=== PATIENT | female | born 1990 | race Caucasian/White ===

== ENCOUNTER 2020-06-03 13:57 | Emergency (ER) | payer SELFPAY ==
[2020-06-03 14:01] VITALS: BP 121/80; PULSE 96; RESP 16; TEMP 36.7; O2SAT 99
--- NOTE | 2020-06-03 14:43 | W.ED.GENAD ---
Discharge Plan Disposition Patient Disposition: HOME Condition: Stable Discharge Details Chief Complaint: Cellulitis Clinical Impression: Cellulitis Primary Care Provider: None,None ED Provider: Jose Jain Home Meds and New Rx's Prescriptions: New cephalexin [Keflex] 500 mg capsule 500 mg PO QID 10 Days Qty: 40 RF: 0 Continued multivitamin Capsule 1 cap PO DAILY RF: 0 Discharge Instructions Instructions: Cellulitis (ED) Additional Instructions: Keflex as directed. Warm compresses every 2 hours for 20 minutes. Please watch for new or worsening symptoms and return to the ER for any concerns. Typically referrals to specialist do not come directly from the ER. I have given you a referral but I do not know if this will be sufficient for their office. Because of this I have also placed you on the care management list, they should contact you early next week and to help expedite all of your outpatient care needs. Referrals: Nilay Jay MD [MD CONSULTING PHYSICIAN] - Discharge Data Discharge Date/Time-TO BE ENTERED AT DEPARTURE: 06/03/20 15:03 Medical Decision Making 30-year-old female presents to the ER with what appears to be a mild right axilla cellulitis. Neuro, vascular, tendon intact. She is afebrile and appears well, nontoxic. We discussed options. I can certainly give her the name and number of a metal sorter however is not typically an official referral to a subspecialist. I will also place her on the healthcare social worker list to help expedite any outpatient care. At this time there is no need for incision and drainage, likely needs to see dermatology or general surgery for definitive care. Given the mild erythema, tenderness, warmth, likely localized cellulitis, will provide antibiotic therapy. Patient is comfortable with this plan has no additional questions or concerns upon discharge. HPI General Mode of arrival: ambulatory. Date/Time Provider Initiated Documentation: 06/03/20 14:23. Limitations to Documentation: no limitations. Information obtained by: patient. HPI Narrative: 30-year-old female with no significant past medical history presents with year of intermittent symptoms to her right axilla. She reports chronic ingrown hair that occasionally swells, occasionally drains. She was able to drain it herself just a couple of days ago and now the swelling has resolved completely. Mild redness and discomfort but denies any fever or spreading redness. Denies rash elsewhere on her body. She contacted a metal sorter for definitive care but they reported they needed a referral and sent her to the ER instead. Related Data Home Medications Medication Instructions Recorded Confirmed cephalexin [Keflex] 500 mg PO QID 10 Days #40 cap 06/03/20 multivitamin 1 cap PO DAILY 06/03/20 06/03/20 Previous Rx's Medication Instructions Recorded cephalexin [Keflex] 500 mg PO QID 10 Days #40 cap 06/03/20 Allergies Allergy/AdvReac Type Severity Reaction Status Date / Time No Known Allergies Allergy Unverified 06/03/20 14:07 General Stated Complaint: Cellulitis JEFF: 3 Review of Systems Constitutional Constitutional: Denies fever(s) and Denies weakness Musculoskeletal Musculoskeletal: Denies arthralgias, Denies numbness and Denies tingling Integumentary/Breasts Skin/Breast: Reports erythema Neurologic Neurologic: Denies numbness, Denies tingling and Denies weakness [facility] Social History Smoking/Tobacco Use Status: Current every day Tobacco Type: cigarettes Alcohol Intake: never Drug use: Daily Substance use type: marijuana Do you feel safe at home: Yes Do you feel safe in your relationship?: Yes Exam Const General: cooperative, healthy appearing, comfortable and no acute distress Orientation: alert, awake and oriented x3 HENMT Head: normal to inspection, normocephalic and atraumatic Mouth: moist mucous membranes Eyes Conjunctivae: conjunctivae normal Neck Neck: normal visual inspection, full ROM, trachea midline, supple and nontender Resp Effort & Inspection: normal respiratory effort and able to speak in complete sentences Cardio Rate: regular rate Rhythm: regular rhythm Skin General skin exam: no rashes or lesions noted Neuro General: patient alert, patient awake, moves all extremities and no focal motor deficits Sensory Exam: no sensory deficits noted Extrem Other: Right axilla there was a dime sized area of slightly tender, macular erythema. Minimal induration without fluctuance or pointing abscess. There is no drainage. No localized lymphadenopathy. Psych Appearance: grossly normal Mental Status: mental status grossly normal Course Vital Signs Vital signs: Vital Signs Temperature 36.7 C 06/03/20 14:01 Pulse 96 H 06/03/20 14:01 Respiratory Rate 16 06/03/20 14:01 Blood Pressure 121/80 06/03/20 14:01 Pulse Oximetry 99 06/03/20 14:01 Temperature 36.7 C 06/03/20 14:01 Temperature Source Temporal Artery Scan 06/03/20 14:01 Pulse 96 H 06/03/20 14:01 Respiratory Rate 16 06/03/20 14:01 Respiratory Effort Non-Labored 06/03/20 14:05 Blood Pressure 121/80 06/03/20 14:01 Blood Pressure Position Sitting 06/03/20 14:01 Pulse Oximetry 99 06/03/20 14:01 Oxygen Delivery Method Room Air 06/03/20 14:01 Oxygen Flow Rate 0 06/03/20 14:01 Pain Level 7 06/03/20 14:01
[2020-06-03 15:02] VITALS: BP 124/81; PULSE 76; RESP 14; TEMP 36.1; O2SAT 98
--- NOTE | 2020-06-04 11:39 | NUR.NOTE ---
Nursing Note: Referral for Dermatology follow up and help with insurance given to Care Management. Jailene Hauser
== END 2020-06-03 15:03 | disposition home or self-care (01) ==
LOC: ER 15:16
PROVIDERS: Emergency Provider Physician Assistant
DX: L03.111 Cellulitis of right axilla (principal)
CPT/HCPCS: 99283

== ENCOUNTER 2022-06-28 12:44 | Emergency (ER) | payer SELFPAY ==
[2022-06-28 13:07] VITALS: BP 127/82; PULSE 68; RESP 18; TEMP 36.8; O2SAT 97
[2022-06-28 13:21] LABS: Bilirubin Negative (Negative); Blood Trace-intact (Negative); Clarity Sl Cloudy (Clear); Glucose Negative (Negative); Ketones Negative (Negative); Leukocyte Esterase Moderate (Negative); Nitrite Negative (Negative); Specific Gravity 1.015 (1.005-1.025); Urobilinogen 0.2 EU/dL (Up TO 0.2); pH 6.5 (5-8)
[2022-06-28 13:28] LABS: Bacteria Moderate HPF (Negative); C & S Indicated? Yes; Casts Negative LPF (Negative); Crystals Negative HPF (Negative); Epithelial Cells Few HPF (Negative); Mucus Negative (Negative); RBC 0-2 HPF (0-2); WBC 20-50 HPF (0-5)
--- NOTE | 2022-06-28 13:40 | ED.GENADUL_ITS ---
Discharge Plan Disposition Patient Disposition: HOME Condition: Stable Discharge Details Clinical Impression: Urinary tract infection Primary Care Provider: None,None ED Provider: Gerardo Cisse Home Meds and New Rx's Prescriptions: New cefpodoxime 200 mg tablet 200 mg PO BID 7 Days Qty: 14 0RF Rx Instructions: must administer with a meal/food phenazopyridine [Pyridium] 100 mg tablet 100 mg PO BID PRNQty: 7 0RF Rx Instructions: bid prn urinary pain No Action prenat.vits,phyllis,osi-qavu-cpriz Tablet 1 tab PO DAILY Discharge Instructions Instructions: Urinary Tract Infection in Women (ED) Additional Instructions: Please return to the emergency department you develop any worsening symptoms such as worsening pain fevers chills nausea vomiting or other abnormal symptoms Medical Decision Making 32-year-old female presents with dysuria urinary frequency and blood in her urine. Denies vaginal discharge, currently is on her menstrual period. Hemodynamically stable afebrile nontoxic. Likely simple cystitis, no evidence at this time of pyelonephritis or systemic signs of illness. Patient does not have any symptoms consistent with STI at this time. Will treat empirically with cefpodoxime and Pyridium. Given home care instructions and return precautions. HPI General Date/Time Provider Initiated Documentation: 06/28/22 12:48 . HPI Narrative: 32-year-old female presents with dysuria urinary frequency and blood-tinged urine. Denies nausea vomiting fevers or chills. Denies vaginal discharge. Also endorses she is on her menstrual period Related Data Home Medications Medication Instructions Recorded Confirmed prenat.vits,phyllis,[id number] 1 tab PO DAILY 08/28/21 cefpodoxime 200 mg tablet 200 mg PO BID 7 days #14 tabs 06/28/22 phenazopyridine 100 mg tablet 100 mg PO BID PRN #7 tabs 06/28/22 (Pyridium) Previous Rx's Medication Instructions Recorded cefpodoxime 200 mg tablet 200 mg PO BID 7 days #14 tabs 06/28/22 phenazopyridine 100 mg tablet 100 mg PO BID PRN #7 tabs 06/28/22 (Pyridium) Allergies Allergy/AdvReac Type Severity Reaction Status Date / Time No Known Allergies Allergy Verified 08/28/21 13:24 General Stated Complaint: Urinary JEFF: 3 Review of Systems Narrative: Review of Systems Constitutional: negative Eyes: negative ENT: negative Cardiovascular: negative Respiratory: negative Gastrointestinal: negative : Dysuria, urinary frequency, blood in urine Musculoskeletal: negative Skin: negative Neurologic: negative Psych: negative PFSH All Active Problems (Updated 06/28/22 @ 13:43 by Gerardo Cisse MD) Urinary tract infection (Acute) Positive test (Acute) Family History Father Suicide Mother Depression Social History (Updated 08/28/21 @ 13:32 by Tasia Porter LPN) Smoking/Tobacco Use Status: Former Tobacco Use Smoking risk assessment performed?: Yes Alcohol Intake: never Drug use: Daily Substance use type: former substance user and marijuana Do you feel safe at home: Yes Do you feel safe in your relationship?: Yes Female Reproductive History Menstrual control method: none History History 3 Para Hx # Term Pregnancies Multiple births Hx # Pregnancies Ectopic pregnancies AB induced Hx Number of Living Children 1 AB spontaneous 2 Exam Narrative Exam Narrative: Physical Examination General: alert, awake, cooperative, resting comfortably, no acute distress HEENT: normocephalic, atraumatic; PERRL, EOM intact, conjunctiva normal; no nasa l discharge; moist mucous membranes, oral and pharyngeal mucosa normal, tolerating secretions Neck: supple, trachea midline; full ROM Chest: normal to inspection Respiratory: normal respiratory effort, speaking in full sentences, clear to auscultation, no wheezing, rales or rhonchi Cardiac: regular rate, regular rhythm, S1S2 intact, no murmurs rubs or gallops GI: abdomen soft, non-tender, non-distended; no palpable mass or hepatosplenomegaly Skin: no lesions, rashes or trauma appreciated Neuro: AAOx3, normal speech, moving all extremities Psych: Appropriate mood and affect Course Vital Signs Vital signs: Vital Signs Temperature 36.8 C 06/28/22 13:07 Pulse 68 06/28/22 13:07 Respiratory Rate 18 06/28/22 13:07 Blood Pressure 127/82 06/28/22 13:07 Pulse Oximetry 97 06/28/22 13:07 Temperature 36.8 C 06/28/22 13:07 Temperature Source Temporal Artery Scan 06/28/22 13:07 Pulse 68 06/28/22 13:07 Respiratory Rate 18 06/28/22 13:07 Respiratory Effort Non-Labored 06/28/22 13:33 Blood Pressure 127/82 06/28/22 13:07 Pulse Oximetry 97 06/28/22 13:07 Oxygen Delivery Method Room Air 06/28/22 13:07 Oxygen Flow Rate 0 06/28/22 13:07 Pain Level 2 06/28/22 13:33 Lab/Test Results Lab/Test Results: 06/28/22 13:13 Urine - Reflex from Ua Urine Culture - Pending Laboratory Tests Range/Units 06/28/22 13:13 Urine Color (Yellow) Yellow Urine Clarity (Clear) Sl Cloudy Urine pH (5-8) 6.5 Ur Specific [place] (1.005-1.025) 1.015 Urine Protein (Negative) mg/dL Negative Urine Ketones (Negative) mg/dL Negative Urine Blood (Negative) Trace-intact H Urine Nitrite (Negative) Negative Urine Bilirubin (Negative) Negative Urine Urobilinogen (Up TO 0.2) EU/dL 0.2 Ur Leukocyte Esterase (Negative) Moderate H Urine RBC (0-2) HPF 0-2 Urine WBC (0-5) HPF 20-50 H Ur Epithelial Cells (Negative) HPF Few Urine Crystals (Negative) HPF Negative Urine Bacteria (Negative) HPF Moderate Urine Casts (Negative) LPF Negative Urine Mucus (Negative) Negative Ur Culture Indicated? Yes Urine Glucose (Negative) mg/dL Negative POC- Test(urine) Negative
[2022-06-28 13:55] VITALS: BP 127/82; PULSE 68; RESP 18; TEMP 36.8; O2SAT 97
[2022-06-28] MEDS: Cefpodoxime 200 MG TAB PO (14:05)
[2022-06-28] MEDS: Phenazopyridine 100 MG TAB PO (14:05)
== END 2022-06-28 16:32 | disposition home or self-care (01) ==
PROVIDERS: Emergency Provider Emergency Medicine
DX: N39.0 Urinary tract infection, site not specified (principal); Z87.891 Personal history of nicotine dependence
CPT/HCPCS: 81025; 99283; 81003; 81015; 87086; 99284

== ENCOUNTER 2024-01-21 13:58 | Emergency (ER) | payer SELFPAY ==
[2024-01-21 14:18] VITALS: BP 160/103; PULSE 96; RESP 15; TEMP 37; O2SAT 99
--- NOTE | 2024-01-21 15:13 | ED.GENADUL_ITS ---
Discharge Plan Disposition Patient Disposition: Home Condition: Stable Discharge Details Clinical Impression: Bacterial conjunctivitis of left eye Primary Care Provider: None,None ED Provider: Cathleen Nunez Home Meds and New Rx's Prescriptions: New polymyxin B sulf-trimethoprim 10,000 unit- 1 mg/mL drops 1 drp ophthalmic (eye) Q3H 7 Days Qty: 10 0RF Rx Instructions: while awake; do not exceed 6 doses in 24 hours No Action prenat.vits,phyllis,[id number] Tablet 1 tab PO DAILY phenazopyridine [Pyridium] 100 mg tablet 100 mg PO BID PRNQty: 7 0RF Rx Instructions: bid prn urinary pain Discharge Instructions Instructions: Conjunctivitis (ED) Additional Instructions: Eyedrops as directed. Every 3 hours while awake. Wash all pillowcases and towels. Use a warm wash cloth to apply for discomfort. Wash hands, do not rub eye. You are contagious until after 3 days of antibiotic. Follow up with primary care provider in 3-5 days if needed. Return to ED sooner if any worsening or concerns. Please take Tylenol or Ibuprofen with food every 4-6 hours as needed for pain and swelling. Stand Alone Forms: Work Release Discharge Data Discharge Date/Time-TO BE ENTERED AT DEPARTURE: 01/21/24 15:26 HPI General Mode of arrival: ambulatory . Date/Time Provider Initiated Documentation: 01/21/24 14:11 . Limitations to Documentation: no limitations . Information obtained by: patient, RN notes reviewed and old records reviewed . HPI Narrative: 33-year-old female presents to the ER with a chief complaint of left eye irritation, drainage and redness and itching after being exposed to pinkeye. Patient reports that her boyfriend was recently diagnosed with pinkeye. She reports she woke up this morning with her crusted over. She does have some surrounding swelling and conjunctival injection. No lesions. External conjunctivitis. Related Data Home Medications Medication Instructions Recorded Confirmed prenat.vits,phyllis,[id number]-ifcke 1 tab PO DAILY 08/28/21 phenazopyridine 100 mg tablet 100 mg PO BID PRN #7 tabs 06/28/22 (Pyridium) polymyxin B sulfate 10,000 1 drp ophthalmic (eye) Q3H 01/21/24 unit-trimethoprim 1 mg/mL eye drops Conjunctivitis 7 days #10 mL Previous Rx's Medication Instructions Recorded phenazopyridine 100 mg tablet 100 mg PO BID PRN #7 tabs 06/28/22 (Pyridium) polymyxin B sulfate 10,000 1 drp ophthalmic (eye) Q3H 01/21/24 unit-trimethoprim 1 mg/mL eye drops Conjunctivitis 7 days #10 mL Allergies Allergy/AdvReac Type Severity Reaction Status Date / Time No Known Allergies Allergy Verified 08/28/21 13:24 General Stated Complaint: EyeProblem JEFF: 4 Review of Systems Eyes Eyes: Reports as per HPI, Reports eye discharge, Reports irritation, Reports itchy eyes, Denies loss of vision, Denies other visual disturbances and Denies seeing flashes Neurologic Neurologic: Denies loss of vision Allergic/Immunologic Allergic/Immunologic: Reports itchy eyes Exam Eyes Eyelids: eyelid abnormality left lower eyelid swelling Conjunctivae: conjunctival abnormality left conjunctival injection diffuse and discharge Course Vital Signs Vital signs: Vital Signs Temperature 37.0 C 01/21/24 14:18 Pulse 96 H 01/21/24 14:18 Respiratory Rate 15 01/21/24 14:18 Blood Pressure 160/103 H 01/21/24 14:18 Pulse Oximetry 99 01/21/24 14:18 Temperature 37.0 C 01/21/24 14:18 Temperature Source Temporal Artery Scan 01/21/24 14:18 Pulse 96 H 01/21/24 14:18 Respiratory Rate 15 01/21/24 14:18 Respiratory Effort Normal 01/21/24 15:06 Blood Pressure 160/103 H 01/21/24 14:18 Blood Pressure Position Sitting 01/21/24 14:18 Pulse Oximetry 99 01/21/24 14:18 Oxygen Delivery Method Room Air 01/21/24 14:18 Oxygen Flow Rate 0 01/21/24 14:18 Medical Decision Making 33-year-old female presents to the ER with a chief complaint of left eye irritation, drainage and redness and itching after being exposed to pinkeye. Patient reports that her boyfriend was recently diagnosed with pinkeye. She reports she woke up this morning with her crusted over. She does have some surrounding swelling and conjunctival injection. No lesions. External conjunctivitis. Will give polytrim ophthalmic drops and have patient follow-up with PCP. Quality:SDOH Health Related Social Needs: No Data to Display PFSH All Active Problems (Updated 01/21/24 @ 15:17 by Cathleen Nunez NP) Bacterial conjunctivitis of left eye (Acute) Positive test (Acute) Family History Father Suicide Mother Depression Social History Smoking/Tobacco Use Status: Former Tobacco Use Smoking risk assessment performed?: Yes Alcohol Intake: never Drug use: Daily Substance use type: former substance user and marijuana Do you feel safe at home: Yes Do you feel safe in your relationship?: Yes Female Reproductive History Menstrual control method: none History History 3 Para Hx # Term Pregnancies Multiple births Hx # Pregnancies Ectopic pregnancies AB induced Hx Number of Living Children 1 AB spontaneous 2
[2024-01-21] MEDS: Polymyxin B/Trimethoprim Ophth Soln 10 ML BTL OS (15:21)
== END 2024-01-21 15:26 | disposition home or self-care (01) ==
PROVIDERS: Emergency Provider Registered Nurse Emergency
DX: H10.022 Other mucopurulent conjunctivitis, left eye (principal)
CPT/HCPCS: 99283

== ENCOUNTER 2024-03-09 12:23 | Emergency (ER) | payer SELFPAY ==
[2024-03-09 12:32] VITALS: BP 156/110; PULSE 104; RESP 18; TEMP 36.9; O2SAT 99
--- NOTE | 2024-03-11 09:36 | NUR.NOTE ---
Accessed pt chart to reconcile EKG orders with EKG?s in [facility]. No EKG in [facility], order cancelled. Nursing Note:
== END 2024-03-09 13:00 ==
PROVIDERS: Emergency Provider Emergency Medicine
DX: Z53.21 Procedure and treatment not carried out due to patient leaving prior to being seen by health care provider (principal); R55 Syncope and collapse; R11.2 Nausea with vomiting, unspecified; R19.7 Diarrhea, unspecified
CPT/HCPCS: 36416; 82962